=== PATIENT | female | born 1965 | race Caucasian/White ===

== ENCOUNTER → 2020-05-14 07:41 | Outpatient (CLI) | payer BC, SELFPAY ==
--- NOTE | ~2020-05-14 | MMUS_ITS ---
EXAMINATION: MM diagnostic erich RT w beth, US breast RT limited HISTORY: Upper outer quadrant mass on outside mammogram TECHNIQUE: Additional 3-D tomosynthesis images of the right breast were performed and synthetic 2-D i mages were generated. CAD analysis was submitted and interpreted. High resolution upper outer quadran t right breast ultrasound was performed. COMPARISON: 03/24/2020 bilateral digital screening mammogram performed at [address] [place] [address], [place], [place] BREAST PARENCHYMAL COMPOSITION: The breasts are heterogeneously dense, which may obscure small masses . FINDINGS: MAMMOGRAPHIC FINDINGS: A circumscribed approximately 7 mm opacity is confirmed mammographically in the upper outer quadrant of the right breast. The circumscribed margins and low density favor benign diagnosis. The reniform s hape favors lymph node. ULTRASOUND: 9:00 7 cm from nipple: Corresponding to the mammographic finding is an oval circumscribed 4.3 x 8.3 x 7.3 mm benign-appearing lymph node with central fatty hilus, no suspicious shadowing. 12:00 5 cm from nipple: 2.5 x 6.1 mm x 8.6 mm benign-appearing circumscribed lesion, likely an additi onal lymph node. IMPRESSION: 1. Benign lymph nodes at 9:00 and 12:00 2. No mammographic evidence of malignancy 3. Routine annual mammographic screening is recommended. BI-RADS Category 2: Benign finding(s). Reviewed, dictated and finalized at location A. P HOIST OPERATOR IMPRESSION: 1. Benign lymph nodes at 9:00 and 12:00 2. No mammographic evidence of malignancy 3. Routine annual mammographic screening is recommended. BI-RADS Category 2: Benign finding(s).
== END ==
PROVIDERS: PCP Family Medicine; Visit Provider Family Medicine
DX: R92.8 Other abnormal and inconclusive findings on diagnostic imaging of breast (principal)
CPT/HCPCS: 76642; 77061; 77065; G0279